=== PATIENT | male | born 1985 | race Caucasian/White ===

== ENCOUNTER 2020-11-30 15:49 | Outpatient (CLI) | payer OTHER, SELFPAY ==
--- NOTE | ~2020-11-30 | XR_ITS ---
XR knee RT min 4V DATE: 11/30/2020 16:20 INDICATION: Injury one week ago. Pain at the patella and mid tibia/fibula TECHNIQUE: AP, PA, lateral, sunrise views COMPARISON: None FINDINGS: No fracture or dislocation or joint effusion. No periosteal reaction or bone destruction. J oint spaces are well preserved. No radiopaque intra-articular loose body or chondrocalcinosis. IMPRESSION: Normal examination Reviewed, dictated and finalized at location B. AW OPERATOR IMPRESSION: Normal examination
== END 2020-11-30 15:50 | disposition home or self-care (01) ==
PROVIDERS: PCP Nurse Practitioner; Visit Provider Nurse Practitioner
DX: M25.561 Pain in right knee (principal)
CPT/HCPCS: 73564

== ENCOUNTER 2022-07-11 18:39 | Emergency (ER) | payer OTHER, SELFPAY ==
--- NOTE | ~2022-07-11 | XR_ITS ---
EXAMINATION: XR knee LT 3V DATE: 07/11/2022 19:09 INDICATION: Left knee injury and pain. TECHNIQUE: 3 views of left knee were obtained. COMPARISON: None. FINDINGS: Bone alignment is normal. No fracture. Joint spaces are well maintained. There is no knee j oint effusion. IMPRESSION: 1. Normal left knee. Reviewed, dictated and finalized at location A. IMPRESSION: 1. Normal left knee.
[2022-07-11 18:42] VITALS: BP 141/77; PULSE 84; RESP 20; TEMP 37.1; O2SAT 99
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
[2022-07-11] MEDS: IBUPROFEN 600 MG TABLET PO (19:22)
[2022-07-11 20:15] VITALS: PULSE 89; RESP 18; O2SAT 99
== END 2022-07-11 20:21 | disposition home or self-care (01) ==
PROVIDERS: Emergency Provider Emergency Medicine
DX: S83.92XA Sprain of unspecified site of left knee, initial encounter (principal); F17.210 Nicotine dependence, cigarettes, uncomplicated; X50.9XXA Other and unspecified overexertion or strenuous movements or postures, initial encounter; Y93.55 Activity, bike riding
CPT/HCPCS: 73562; 99283; A9270

== ENCOUNTER 2024-03-09 09:02 | Emergency (ER) | payer OTHER, SELFPAY ==
[2024-03-09] VITALS (8 sets, daily range): BP systolic 137–152; BP diastolic 91–97; PULSE 68–78; RESP 11–20; TEMP 36.6; O2SAT 95–100
--- NOTE | ~2024-03-09 | CT_ITS ---
Clinical Indication: Pulmonary embolus CT Scan of the Chest with Contrast: Technique: Contiguous sections were acquired throughout the chest after intravenous administration of 100 cc of Omnipaque 350. Dose reduction technique was used on this scan by utilizing automated expos ure control and iterative reconstruction technique. The dose-length product (DLP) was 880.29 mGy-cm. Findings: There is no evidence of any significant mediastinal, hilar or axillary lymphadenopathy. There is no f illing defect in the pulmonary arterial tree to suggest pulmonary embolus. There is no evidence of ao rtic dissection or aneurysm. There is no evidence of pleural or pericardial effusion. There is a 1.5 cm right middle lobe pulmonary nodule (axial image 70), with probable small focal cent ral calcification. There are a few focal minimal groundglass opacities in the left lower lobe (axial image 107 for example). Images through the upper abdomen reveal no abnormalities. Impression: No evidence of pulmonary embolus, aortic dissection, or aortic aneurysm. 1.5 cm right middle lobe pulmonary nodule. Given age and small central calcification, this is most li ly benign, however neoplastic lesion cannot be completely excluded. Consider PET/CT, tissue samplin g, or short-term follow-up CT to further evaluate. Minimal groundglass opacities in the left lower lobe, most compatible with infectious/inflammatory pr ocess. Reviewed, dictated and finalized at [facility]. Impression: No evidence of pulmonary embolus, aortic dissection, or aortic aneurysm. 1.5 cm right middle lobe pulmonary nodule. Given age and small central calcific ation, this is most likely benign, however neoplastic lesion cannot be complete ly excluded. Consider PET/CT, tissue sampling, or short-term follow-up CT to fu rther evaluate. Minimal groundglass opacities in the left lower lobe, most compatible with infe ctious/inflammatory process.
--- NOTE | ~2024-03-09 | XR_ITS ---
XR chest 2V 03/09/2024 09:44 Indication: Increased shortness of breath. Weakness. Asthma. Procedure: 2 view chest Comparison: No prior studies for comparison. Findings: Heart size normal. No focal air space disease, pulmonary edema, pleural effusion or suspect ed pneumothorax. There is a mass anteriorly on the lateral view overlying the cardiac contour. Impression: 1: Chest mass anteriorly on lateral view measuring 1.[address] chest recommended. Reviewed, dictated and finalized at location A. Impression: 1: Chest mass anteriorly on lateral view measuring 1.[address] chest recommended.
--- NOTE | 2024-03-09 09:11 | ECG_ITS ---
SEE SCANNED COPY FOR CONFIRMED REPORT MTDD
[2024-03-09 09:25] LABS: Basophils Absolute Auto 0.1 K/mm3 (0.0-0.1); Basophils Percent Auto 0.6 % (0.2-1.2); Eosinophils Absolute Auto 0.3 K/mm3 (0-0.3); Eosinophils Percent Auto 2.8 % (0-4.4); Hematocrit 45.7 % (42.0-52.0); Hemoglobin 15.3 g/dL (14.0-18.0); Immature Granulocyte Absolute 0.04 K/mm3 (0.00-0.031); Immature Granulocyte Percent A 0.4 % (0-0.5); Lymphocytes Absolute Auto 2.69 K/mm3 (0.9-3.2); Lymphocytes Percent Auto 27.8 % (18.3-44.2); Mean Corpuscular HGB Conc 33.5 g/dl (32-36); Mean Corpuscular Hemoglobin 31.2 pg (26-34); Mean Corpuscular Volume 93.1 fl (80-100); Mean Platelet Volume 9.7 fl (7.4-10.4); Monocytes Absolute Auto 0.7 K/mm3 (0.1-0.6); Monocytes Percent Auto 7.6 % (2.6-8.5); Neutrophils Absolute Auto 5.9 K/mm3 (1.3-6.7); Neutrophils Percent Auto 60.8 % (45.5-73.1); Platelet Count Result 247 k/mm3 (150-375); Red Blood Count 4.91 M/mm3 (4.6-6.20); Red Cell Distribution Width 12.6 % (11.5-14.5); White Blood Count 9.7 K/mm3 (4.5-10.0)
[2024-03-09 09:37] LABS: Alanine Aminotransferase 22 U/L (6-50); Albumin Level 4.7 g/dL (3.5-5.1); Alkaline Phosphatase 109 U/L (38-126); Anion Gap 10 mmol/L (4-12); Aspartate Amino Transferase 38 U/L (17-59); Bilirubin,Total 0.6 mg/dL (0.2-1.3); Blood Urea Nitrogen 14 mg/dL (9-20); Calcium 9.5 mg/dL (8.4-10.2); Carbon Dioxide 19 mmol/L (22-30); Chloride 108 mmol/L (98-107); Estimated CRCL calculation 175 ml/min; Estimated Glomerular Filt Rate > 60; Glucose 107 mg/dL (65-110); Potassium 3.8 mmol/L (3.4-5.0); Sodium 137 mmol/L (137-145)
[2024-03-09 09:54] LABS: NT Pro B Type Natriuretic Pept < 20 pg/mL (19.9-100); Troponin I < 0.012 ng/mL (0.000-0.034)
[2024-03-09 10:08] LABS: Influenza A QL RT-PCR Negative (Negative); Influenza B QL RT-PCR Negative (Negative); RSV RNA, RT-PCR Negative (Negative); SARS-CoV-2 RNA PCR Negative (Negative)
[2024-03-09] MEDS: SODIUM CHLORIDE 0.9% IV 1,000 ML 999 ML IV CONT (10:15)
--- NOTE | 2024-03-09 10:34 | ED.SOB ---
HPI - SOB/Dyspnea General Chief Complaint: Shortness of Breath/Dyspnea Stated Complaint: shortness of breath Time Seen by Provider: 03/09/24 09:23 Source: patient Mode of arrival: ambulatory Limitations: no limitations History of Present Illness HPI Narrative: Patient is a 38-year-old male who presents the ED with report of shortness of breath. Patient reports he woke up this morning and felt short breath. States he feels as though he cannot take a deep breath or given the air into his lungs. States he feels like a fish out of water. Has never had similar symptoms. 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 States shortness of breath worse with movement. He also reports dizziness with movement. States he felt fine yesterday. Denies any recent cough or cold symptoms. Denies chest pain. Denies lower extremity pain or swelling. Denies history of blood clots. Denies recent long distance travel. Related Data Allergies Allergy/AdvReac Type Severity Reaction Status Date / Time No Known Allergies Allergy Verified 03/09/24 09:27 Review of Systems Review of Systems: CONSTITUTIONAL: Denies fever, chills, or sweats. CARDIOVASCULAR: Denies chest pain, palpitations, or edema. RESPIRATORY: See HPI GASTROINTESTINAL: Denies abdominal pain, nausea, vomiting. MUSCULOSKELETAL: Denies back pain, extremity pain, myalgia. NEUROLOGIC: See HPI All systems reviewed & are unremarkable except as noted in HPI and below PMFSH Past Medical History Medical History Patient denies significant medical history Surgical History Surgical History History of ankle surgery Right ankle Social History Social History Smoking packs per day: 0.5 Smoking cigarettes per day: 10.0 Years smoked: 2 Smoking pack-years: 1.00 Smoking status: Current every day smoker Tobacco type: cigarettes Alcohol intake: current Drinks per week: 2 Substance use: never Exam Narrative: GENERAL: Well appearing, obese with BMI of 35.5, non-toxic, in no acute distress. HEAD: Normocephalic, atraumatic. RESPIRATORY: Airway patent, respirations nonlabored. Clear to auscultation bilaterally, no rales, rhonchi, wheezing. No focal lung sounds. No stridor distress. CARDIOVASCULAR: Regular rate and rhythm without murmurs, rubs, or gallops. MUSCULOSKELETAL: Moves all extremities. No gross deformities. No lower extremity edema. No calf tenderness. SKIN: Warm, dry, normal color. NEURO: A&O X3. Speech clear. PSYCHIATRIC: Mildly anxious appearing. Normal interaction. Course Vital Signs Vital signs: Vital Signs Temperature 97.8 F 03/09/24 09:05 Pulse Rate 76 03/09/24 09:05 Respiratory Rate 20 03/09/24 09:05 Blood Pressure 148/97 H 03/09/24 09:05 Pulse Oximetry 98 03/09/24 09:05 Oxygen Delivery Room Air 03/09/24 09:05 Temperature 97.8 F 03/09/24 09:05 Pulse Rate 68 03/09/24 12:59 Respiratory Rate 12 03/09/24 12:59 Blood Pressure 137/93 H 03/09/24 12:59 Pulse Oximetry 97 03/09/24 12:59 Oxygen Delivery Room Air 03/09/24 09:26 MDM - SOB/Dyspnea MDM Narrative Medical decision making narrative: Patient presented to ED with shortness of breath that began today upon waking. States he otherwise felt fine yesterday. Vitals are stable upon arrival. Patient afebrile. O2 stable on RA, 100% upon my evaluation. Patient in no acute distress. He does appear mildly anxious. EKG without concerning ST changes. Patient denying active chest pain. Baseline troponin is undetectable. Basic laboratory studies are unremarkable. BNP within normal limits. Viral swabs were negative. Chest x-ray with possible chest mass anteriorly. Recommended CT for further evaluation. CTA PE study
[2024-03-09 12:58] LABS: Troponin I < 0.012 ng/mL (0.000-0.034)
== END 2024-03-09 13:14 | disposition home or self-care (01) ==
PROVIDERS: Student in an Organized Health Care Education/Training Program; Emergency Provider Physician Assistant
DX: R06.02 Shortness of breath (principal); R91.1 Solitary pulmonary nodule; F17.210 Nicotine dependence, cigarettes, uncomplicated; R94.31 Abnormal electrocardiogram [ECG] [EKG]
CPT/HCPCS: 36415; 71046; 71275; 80053; 83880; 84484; 85025; 87637; 93005; 96360; 99284; J7030; Q9967